=== PATIENT | female | born 1990 | race African-American/Black ===

== ENCOUNTER → 2016-08-05 | Outpatient (CLI) | payer BC ==
[2016-08-05 16:57] LABS: HCG SCREEN POSITIVE
== END | disposition home or self-care (01) ==
LOC: LAB 15:03
PROVIDERS: ATTEND Internal Medicine Geriatric Medicine
DX: N91.2 Amenorrhea, unspecified (principal); Z32.01 Encounter for pregnancy test, result positive
CPT/HCPCS: 84703

== ENCOUNTER → 2017-11-13 | Outpatient (CLI) | payer BC ==
[~2017-11-13] MED LIST: ALBUTEROL (0.083%) 2.5MG/3ML NEB ONE
[2017-11-13 11:52] LABS: CLARITY URINE CLOUDY (CLEAR); COLOR URINE YELLOW (YELLOW); KETONES URINE NEGATIVE (NEGATIVE); LEUKOCYTE ESTERASE URINE NEGATIVE (NEGATIVE); NITRITE URINE NEGATIVE (NEGATIVE); OCCULT BLOOD URINE NEGATIVE (NEGATIVE); PROTEIN URINE NEGATIVE (NEGATIVE); SPECIFIC GRAVITY URINE 1.024 (1.005-1.030); UROBILINOGEN URINE 0.2 E.U./dL (0.2-1.0)
[2017-11-13 12:12] LABS: EOSINOPHILS % 2.1 % (0.0-5.0); HEMATOCRIT. 40.5 % (36.0-48.0); LYMPHOCYTES % 45.6 % (20.0-50.0); MEAN CORPUSCULAR HEMOGLOBIN 32.6 pg (28.0-32.0); MEAN CORPUSCULAR VOLUME 94.1 fL (81.0-99.0); MEAN PLATELET VOLUME 7.6 fl (7.4-10.4); MONOCYTES % 7.1 % (2.0-8.0); NEUTROPHILS % 44.2 % (40.0-76.0); PLATELET 305 x1000/uL (130-400); RED BLOOD CELL COUNT 4.31 mill/uL (4.2-5.4)
[2017-11-13 12:39] LABS: CHLORIDE 102 mEq/L (98-107)
[2017-11-13 12:46] LABS: LDL CHOLESTEROL 82 mg/dL (5-100); TOTAL IRON BINDING CAPACITY 344 ug/dL (250-450)
[2017-11-13 12:47] LABS: HDL CHOLESTEROL 74 mg/dL (40-59)
[2017-11-13 13:10] LABS: VITAMIN B12 SERUM 600 pg/mL (211-911)
[2017-11-13 13:15] LABS: FERRITIN 46 ng/mL (10-291)
== END | disposition home or self-care (01) ==
LOC: LAB 11:33
PROVIDERS: ATTEND Internal Medicine Geriatric Medicine
DX: Z00.01 Encounter for general adult medical examination with abnormal findings (principal); N39.0 Urinary tract infection, site not specified; J45.998 Other asthma; R73.09 Other abnormal glucose
CPT/HCPCS: 36415; 80053; 80061; 81003; 82306; 82607; 82728; 83036; 83540; 83550; 84443; 85025; 86592; 94060; 94727; 94729; J7611

== ENCOUNTER → 2017-12-11 | Outpatient (CLI) | payer BC | END | disposition home or self-care (01) | LOC: MRI 11:02 | PROVIDERS: ATTEND Internal Medicine Geriatric Medicine | DX: S86.011A Strain of right Achilles tendon, initial encounter (principal); X58.XXXA Exposure to other specified factors, initial encounter; Y93.89 Activity, other specified; Y92.89 Other specified places as the place of occurrence of the external cause; Y99.8 Other external cause status | CPT/HCPCS: 73721 ==

== ENCOUNTER → 2017-12-31 | Outpatient (CLI) | payer BC ==
[~2017-12-31] MED LIST changes: -ALBUTEROL (0.083%) 2.5MG/3ML NEB ONE; +GADOBENATE DIMEGLUMINE 529 MG/ML 10ML IV ONE
== END | disposition home or self-care (01) ==
LOC: MRI 13:35
PROVIDERS: ATTEND Internal Medicine Geriatric Medicine
DX: M70.871 Other soft tissue disorders related to use, overuse and pressure, right ankle and foot (principal)
CPT/HCPCS: 73722; A9577

== ENCOUNTER → 2018-02-04 | Outpatient (CLI) | payer BC | END | disposition home or self-care (01) | LOC: RAD 10:10 | PROVIDERS: ATTEND Internal Medicine Geriatric Medicine | DX: M25.571 Pain in right ankle and joints of right foot (principal) | CPT/HCPCS: 73610 ==

== ENCOUNTER → 2018-09-10 | Outpatient (CLI) | payer BC ==
[2018-09-10 11:44] LABS: BASOPHILS % 0.8 % (0.0-2.0); EOSINOPHILS % 1.7 % (0.0-5.0); HEMATOCRIT. 40.8 % (36.0-48.0); LYMPHOCYTES % 36.2 % (20.0-50.0); MEAN CORPUSCULAR HEMOGLOBIN 32.3 pg (28.0-32.0); MEAN CORPUSCULAR VOLUME 94.4 fL (81.0-99.0); MONOCYTES % 6.8 % (2.0-8.0); NEUTROPHILS % 54.5 % (40.0-76.0); PLATELET 298 x1000/uL (130-400); RED BLOOD CELL COUNT 4.33 mill/uL (4.2-5.4); RED CELL DISTRIBUTION WIDTH 13.7 % (11.6-14.6)
[2018-09-10 11:48] LABS: CLARITY URINE CLEAR (CLEAR); COLOR URINE YELLOW (YELLOW); KETONES URINE NEGATIVE (NEGATIVE); LEUKOCYTE ESTERASE URINE NEGATIVE (NEGATIVE); NITRITE URINE NEGATIVE (NEGATIVE); OCCULT BLOOD URINE NEGATIVE (NEGATIVE); PROTEIN URINE NEGATIVE (NEGATIVE); SPECIFIC GRAVITY URINE 1.021 (1.005-1.030)
[2018-09-10 11:51] LABS: PROTHROMBIN TIME 10.6 sec (9.6-11.0)
[2018-09-10 11:53] LABS: CHLORIDE 105 mEq/L (98-107)
[2018-09-10 12:08] LABS: HCG SCREEN NEGATIVE
[2018-09-11 04:11] LABS: HIV SCREEN 4G Non Reactive (Non Reactive)
== END | disposition home or self-care (01) ==
LOC: LAB 11:01
PROVIDERS: ATTEND Internal Medicine Geriatric Medicine
DX: Z01.812 Encounter for preprocedural laboratory examination (principal); R06.02 Shortness of breath; Z87.891 Personal history of nicotine dependence
CPT/HCPCS: 36415; 71046; 84703; 87389

== ENCOUNTER → 2019-04-08 | Outpatient (CLI) | payer BC ==
[2019-04-08 16:29] LABS: BASOPHILS % 1.2 % (0.0-2.0); EOSINOPHILS % 1.5 % (0.0-5.0); HEMOGLOBIN. 13.1 g/dL (12.0-16.0); LYMPHOCYTES % 40.8 % (20.0-50.0); MEAN CORPUSCULAR HEMOGLOBIN 32.2 pg (28.0-32.0); MEAN CORPUSCULAR VOLUME 93.6 fL (81.0-99.0); MEAN PLATELET VOLUME 7.2 fl (7.4-10.4); NEUTROPHILS % 50.5 % (40.0-76.0); PLATELET 308 x1000/uL (130-400); RED BLOOD CELL COUNT 4.06 mill/uL (4.2-5.4); RED CELL DISTRIBUTION WIDTH 13.3 % (11.6-14.6)
[2019-04-08 16:44] LABS: CHLORIDE 106 mEq/L (98-107)
[2019-04-08 17:58] LABS: HEPATITIS B SURFACE AB 41.9 mIU/mL
[2019-04-08 18:39] LABS: HEPATITIS A AB IGM NEGATIVE (NEGATIVE)
[2019-04-10 07:11] LABS: MUMPS IGG ANTIBODY 52.7 AU/mL (Immune >10.9)
== END | disposition home or self-care (01) ==
LOC: LAB 11:56
PROVIDERS: ATTEND Internal Medicine Geriatric Medicine
DX: Z11.59 Encounter for screening for other viral diseases (principal); Z11.0 Encounter for screening for intestinal infectious diseases
CPT/HCPCS: 36415; 86705; 86706; 86709; 86735; 86762; 86765; 86803; 87340

== ENCOUNTER → 2019-05-17 | Outpatient (CLI) | payer BC | END | disposition home or self-care (01) | LOC: LAB 11:49 | PROVIDERS: ATTEND Internal Medicine Geriatric Medicine | DX: Z11.59 Encounter for screening for other viral diseases (principal) | CPT/HCPCS: 86787 ==

== ENCOUNTER → 2019-06-08 | Outpatient (CLI) | payer BC ==
[2019-06-08 12:44] LABS: CLARITY URINE CLEAR (CLEAR); COLOR URINE YELLOW (YELLOW); KETONES URINE NEGATIVE (NEGATIVE); LEUKOCYTE ESTERASE URINE NEGATIVE (NEGATIVE); NITRITE URINE NEGATIVE (NEGATIVE); OCCULT BLOOD URINE NEGATIVE (NEGATIVE); PROTEIN URINE NEGATIVE (NEGATIVE); SPECIFIC GRAVITY URINE 1.024 (1.005-1.030); UROBILINOGEN URINE 0.2 E.U./dL (0.2-1.0)
[2019-06-08 14:32] LABS: CHLORIDE 107 mEq/L (98-107)
[2019-06-08 14:41] LABS: HDL CHOLESTEROL 78 mg/dL (40-59); LDL CHOLESTEROL 54 mg/dL (5-100)
[2019-06-08 15:03] LABS: VITAMIN B12 SERUM 582 pg/mL (211-911)
[2019-06-10 04:11] LABS: CHLAMYDIA TRACHOMATIS NAA Negative (Negative); NEISSERIA GONORRHOEAE NAA Negative (Negative)
== END | disposition home or self-care (01) ==
LOC: LAB 11:29
PROVIDERS: ATTEND Internal Medicine Geriatric Medicine
DX: Z11.3 Encounter for screening for infections with a predominantly sexual mode of transmission (principal); R73.09 Other abnormal glucose; N39.0 Urinary tract infection, site not specified
CPT/HCPCS: 36415; 80053; 80061; 81003; 82306; 82607; 87491; 87591

== ENCOUNTER 2019-10-06 13:49 | Emergency (ER) | payer BC ==
[~2019-10-06] VITALS: Ht 165.1 cm; Wt 60.0 kg
[2019-10-06] MEDS ORDERED: ACETAMINOPHEN 325MG TABLET PO STA (15:38)
[2019-10-06] MEDS ORDERED: SODIUM CHLORIDE 0.9% 1,000 ML IV ONE (15:38)
[2019-10-06] MEDS ORDERED: ONDANSETRON HCL 4MG/2ML INJ IV STA (15:38)
[2019-10-06 16:09] LABS: BASOPHILS % 0.4 % (0.0-2.0); EOSINOPHILS % 1.6 % (0.0-5.0); HEMATOCRIT. 35.6 % (36.0-48.0); HEMOGLOBIN. 12.6 g/dL (12.0-16.0); LYMPHOCYTES % 23.4 % (20.0-50.0); MEAN CORPUSCULAR HEMOGLOBIN 32.8 pg (28.0-32.0); MEAN CORPUSCULAR VOLUME 92.9 fL (81.0-99.0); MEAN PLATELET VOLUME 7.2 fl (7.4-10.4); MONOCYTES % 7.5 % (2.0-8.0); NEUTROPHILS % 67.1 % (40.0-76.0); PLATELET 282 x1000/uL (130-400); RED BLOOD CELL COUNT 3.83 mill/uL (4.2-5.4); RED CELL DISTRIBUTION WIDTH 13.4 % (11.6-14.6)
[2019-10-06 16:20] LABS: CHLORIDE 105 mEq/L (98-107)
[2019-10-06 16:31] LABS: CLARITY URINE CLOUDY (CLEAR); COLOR URINE YELLOW (YELLOW); KETONES URINE 4+ (NEGATIVE); LEUKOCYTE ESTERASE URINE TRACE (NEGATIVE); NITRITE URINE NEGATIVE (NEGATIVE); OCCULT BLOOD URINE NEGATIVE (NEGATIVE); PH URINE 5.5 (4.5-8.0); PROTEIN URINE 1+ (NEGATIVE); SPECIFIC GRAVITY URINE 1.036 (1.005-1.030)
[2019-10-06 16:44] LABS: B-HCG QUANTITATIVE 150072 mIU/mL (<3)
[2019-10-06] MEDS ORDERED: ONDANSETRON HCL 4MG/2ML INJ IV ONE (18:30)
[2019-10-06 18:55] VITALS: BP 110/59
== END 2019-10-06 18:57 | disposition home or self-care (01) ==
LOC: ER 14:00
DX: O21.0 Mild hyperemesis gravidarum (principal); O23.41 Unspecified infection of urinary tract in pregnancy, first trimester; O99.321 Drug use complicating pregnancy, first trimester; F12.90 Cannabis use, unspecified, uncomplicated; O26.891 Other specified pregnancy related conditions, first trimester; J45.909 Unspecified asthma, uncomplicated; Z3A.12 12 weeks gestation of pregnancy
CPT/HCPCS: 36415; 70551; 76801; 76817; 80053; 81003; 83690; 84702; 85025; 86850; 86900; 86901; 96361; 96374; 96376; 99285; J2405; J7030

== ENCOUNTER 2019-10-22 17:42 | Inpatient (IN) | payer BC ==
[~2019-10-22] VITALS: Ht 157.5 cm; Wt 53.5 kg
[2019-10-22] MEDS ORDERED: DEXT 5%/LACTATED RINGERS 1,000 ML IV ONE (18:00)
[2019-10-22] MEDS ORDERED: ONDANSETRON HCL 4MG/2ML INJ IV ONE (18:00)
[2019-10-22] MEDS ORDERED: SODIUM CHLORIDE 0.9% 1,000 ML IV ONE (18:30)
[2019-10-22 18:32] LABS: CHLORIDE 91 mEq/L (98-107)
[2019-10-22 18:35] LABS: BASOPHILS % 0.3 % (0.0-2.0); EOSINOPHILS % 0.3 % (0.0-5.0); HEMATOCRIT. 37.7 % (36.0-48.0); HEMOGLOBIN. 13.6 g/dL (12.0-16.0); LYMPHOCYTES % 11.9 % (20.0-50.0); MEAN CORPUSCULAR HEMOGLOBIN 32.1 pg (28.0-32.0); MEAN CORPUSCULAR VOLUME 89.2 fL (81.0-99.0); MEAN PLATELET VOLUME 7.8 fl (7.4-10.4); MONOCYTES % 9.2 % (2.0-8.0); NEUTROPHILS % 78.3 % (40.0-76.0); PLATELET 266 x1000/uL (130-400); RED BLOOD CELL COUNT 4.22 mill/uL (4.2-5.4); RED CELL DISTRIBUTION WIDTH 12.9 % (11.6-14.6)
[2019-10-22 18:41] LABS: T4 FREE 3.03 ng/dL (0.76-1.46)
[2019-10-22] MEDS ORDERED: POTASSIUM CHLORIDE INJ 40 MEQ in DEXT 5% WATER 250 ML IV ONE (19:15)
[2019-10-22 20:55] VITALS: BP 134/86
[2019-10-22] MEDS ORDERED: MONT4TAB9 MT (23:33)
[2019-10-23] MEDS ORDERED: METOPROLOL TARTRATE 5MG/5ML VIAL IV ONE (02:00)
[2019-10-23] MEDS ORDERED: METOPROLOL TARTRATE 5MG/5ML VIAL IV PRN (02:15)
[2019-10-23] MEDS: ONDANSETRON HCL 4MG/2ML INJ IV PRN ×3 (03:34→13:39)
[2019-10-23 05:54] LABS: CHLORIDE 94 mEq/L (98-107)
[2019-10-23 08:14] VITALS: BP 132/83
[2019-10-23] MEDS ORDERED: LABETALOL 5MG/ML SYR 20 MG/4 ML SYRINGE IV PRN (09:00)
[2019-10-23] MEDS: DEXT 5%/0.45% NACL KCL 40MEQ/L 1,000 ML IV SCH ×2 (09:17→21:54)
[2019-10-23] MEDS: PRENATAL VIT/FE FUMARATE/FA TABLET PO SCH (09:17)
[2019-10-23] MEDS: PYRIDOXINE HCL 50MG TABLET PO SCH ×3 (09:17→21:55)
[2019-10-23] MEDS: DOCUSATE SODIUM 250MG CAPSULE PO SCH (09:17)
[2019-10-23] MEDS: METOPROLOL TARTRATE 5MG/5ML VIAL IV SCH ×3 (09:18→17:21)
[2019-10-23] MEDS ORDERED: MAGNESIUM 2 G PREMIX 50 ML IV SCH (10:00)
[2019-10-23 11:34] LABS: HEMATOCRIT 34.2 % (36.0-48.0); HEMOGLOBIN 12.4 g/dL (12.0-16.0); MEAN CORPUSCULAR HEMOGLOBIN 32.3 pg (28.0-32.0); PLATELET 233 x1000/uL (130-400); RED BLOOD CELL COUNT 3.84 mill/uL (4.2-5.4); RED CELL DISTRIBUTION WIDTH 12.9 % (11.6-14.6)
[2019-10-23 12:11] VITALS: BP 143/99
[2019-10-23 12:22] LABS: CHLORIDE 93 mEq/L (98-107)
[2019-10-23 16:00] VITALS: BP 150/98
[2019-10-23] MEDS ORDERED: ACETAMINOPHEN 325MG TABLET PO PRN (16:30)
[2019-10-23 16:41] VITALS: BP 150/98
[2019-10-23 20:00] VITALS: BP 136/91
[2019-10-24] VITALS (8 sets, daily range): BP systolic 120–139; BP diastolic 72–95
[2019-10-24] MEDS: METOPROLOL TARTRATE 5MG/5ML VIAL IV SCH ×2 (00:14→06:03)
[2019-10-24] MEDS: ONDANSETRON HCL 4MG/2ML INJ IV PRN ×2 (03:53→21:49)
[2019-10-24] MEDS: PYRIDOXINE HCL 50MG TABLET PO SCH ×3 (06:02→23:23)
[2019-10-24 06:24] LABS: CHLORIDE 97 mEq/L (98-107)
[2019-10-24 07:59] LABS: HEMATOCRIT. 32.3 % (36.0-48.0); HEMOGLOBIN. 11.7 g/dL (12.0-16.0); LYMPHOCYTES % 13.8 % (20.0-50.0); MEAN CORPUSCULAR HEMOGLOBIN 32.5 pg (28.0-32.0); MEAN CORPUSCULAR VOLUME 89.6 fL (81.0-99.0); MEAN PLATELET VOLUME 7.9 fl (7.4-10.4); MONOCYTES % 10.1 % (2.0-8.0); NEUTROPHILS % 74.1 % (40.0-76.0); PLATELET 215 x1000/uL (130-400); RED BLOOD CELL COUNT 3.61 mill/uL (4.2-5.4); RED CELL DISTRIBUTION WIDTH 12.8 % (11.6-14.6)
[2019-10-24] MEDS ORDERED: POTASSIUM CHLORIDE INJ 40 MEQ in DEXT 5% WATER 250 ML IV NR (08:00)
[2019-10-24] MEDS: DOCUSATE SODIUM 250MG CAPSULE PO SCH (09:23)
[2019-10-24] MEDS: PRENATAL VIT/FE FUMARATE/FA TABLET PO SCH (09:23)
[2019-10-24] MEDS: DEXT 5%/0.45% NACL KCL 40MEQ/L 1,000 ML IV SCH ×2 (11:36→18:19)
[2019-10-24 12:34] LABS: PHOSPHORUS 2.6 mg/dL (2.5-4.9)
[2019-10-24] MEDS: PROPYLTHIOURACIL 50MG TABLET PO SCH ×3 (13:49→23:23)
[2019-10-24 17:10] LABS: CORTISOL 14.6 ucg/dL; TRIOIODOTHYRONINE TOTAL 2.62 ng/ml (0.60-1.81)
[2019-10-25 02:44] VITALS: BP 124/72
[2019-10-25 04:45] LABS: BASOPHILS % 0.6 % (0.0-2.0); EOSINOPHILS % 1.4 % (0.0-5.0); HEMATOCRIT. 30.2 % (36.0-48.0); LYMPHOCYTES % 26.1 % (20.0-50.0); MEAN CORPUSCULAR HEMOGLOBIN 32.8 pg (28.0-32.0); MEAN CORPUSCULAR VOLUME 90.1 fL (81.0-99.0); MEAN PLATELET VOLUME 7.5 fl (7.4-10.4); MONOCYTES % 10.2 % (2.0-8.0); NEUTROPHILS % 61.7 % (40.0-76.0); PLATELET 193 x1000/uL (130-400); RED BLOOD CELL COUNT 3.35 mill/uL (4.2-5.4); RED CELL DISTRIBUTION WIDTH 12.9 % (11.6-14.6)
[2019-10-25 04:50] LABS: CHLORIDE 100 mEq/L (98-107)
[2019-10-25 04:56] LABS: PHOSPHORUS 1.9 mg/dL (2.5-4.9)
[2019-10-25] MEDS: PROPYLTHIOURACIL 50MG TABLET PO SCH ×3 (05:26→18:23)
[2019-10-25] MEDS: PYRIDOXINE HCL 50MG TABLET PO SCH ×3 (05:26→22:11)
[2019-10-25 05:32] VITALS: BP 128/75
[2019-10-25] MEDS ORDERED: SODIUM PHOS,M-BASIC-D-BASIC 20 MM in DEXT 5% WATER 243.3333 ML IV NR (08:00)
[2019-10-25 08:10] VITALS: BP 115/75
[2019-10-25] MEDS ORDERED: SODIUM PHOS,M-BASIC-D-BASIC 15 MM in DEXT 5% WATER 245 ML IV ONE (08:30)
[2019-10-25] MEDS: DOCUSATE SODIUM 250MG CAPSULE PO SCH (09:20)
[2019-10-25] MEDS: PRENATAL VIT/FE FUMARATE/FA TABLET PO SCH (09:21)
[2019-10-25] MEDS: ONDANSETRON HCL 4MG/2ML INJ IV PRN (10:30)
[2019-10-25 12:00] VITALS: BP 113/68
[2019-10-25] MEDS: PROMETHAZINE HCL 25MG TABLET PO SCH ×2 (15:25→18:23)
[2019-10-25 16:00] VITALS: BP 106/63
[2019-10-25 20:00] VITALS: BP 108/63
[2019-10-26] VITALS: BP 97/54
[2019-10-26] MEDS: PROMETHAZINE HCL 25MG TABLET PO SCH ×3 (00:23→13:18)
[2019-10-26] MEDS: PROPYLTHIOURACIL 50MG TABLET PO SCH ×3 (00:23→13:18)
[2019-10-26 04:00] VITALS: BP 119/65
[2019-10-26] MEDS: PYRIDOXINE HCL 50MG TABLET PO SCH ×2 (06:22→13:18)
[2019-10-26 06:31] LABS: CHLORIDE 103 mEq/L (98-107)
[2019-10-26 08:00] VITALS: BP 125/82
[2019-10-26] MEDS ORDERED: PY50 PO (08:02)
[2019-10-26] MEDS ORDERED: PROP50TA3 PO (08:02)
[2019-10-26] MEDS ORDERED: DOCU250C14 PO (08:02)
[2019-10-26] MEDS: ONDANSETRON HCL 4MG/2ML INJ IV PRN (08:22)
[2019-10-26 08:33] LABS: HEMATOCRIT. 28.5 % (36.0-48.0); HEMOGLOBIN. 10.1 g/dL (12.0-16.0); MEAN CORPUSCULAR HEMOGLOBIN 32.5 pg (28.0-32.0); MEAN PLATELET VOLUME 7.9 fl (7.4-10.4); PLATELET 165 x1000/uL (130-400); RED CELL DISTRIBUTION WIDTH 13.2 % (11.6-14.6)
[2019-10-26 09:06] LABS: VITAMIN D 25-OH 11.1 ng/mL (30.0-100.0)
[2019-10-26] MEDS: DOCUSATE SODIUM 250MG CAPSULE PO SCH (10:49)
[2019-10-26] MEDS: PRENATAL VIT/FE FUMARATE/FA TABLET PO SCH (10:49)
[2019-10-26 12:00] VITALS: BP 126/75
[2019-10-26 13:06] LABS: ALBUMIN 3.1 g/dL (2.9-4.4); ALPHA-1-GLOBULIN 0.4 g/dL (0.0-0.4); ALPHA-2-GLOBULIN 0.8 g/dL (0.4-1.0); BETA GLOBULIN 0.9 g/dL (0.7-1.3); GAMMA GLOBULINS 0.9 g/dL (0.4-1.8); M-SPIKE Not Observed g/dL (Not Observed); TOTAL PROTEIN SERUM 6.1 g/dL (6.0-8.5)
[2019-10-26 13:24] VITALS: BP 126/75
[2019-10-26 13:47] LABS: PLATELET ESTIMATE NORMAL
== END 2019-10-26 13:58 | disposition home or self-care (01) | DRG 832 ==
LOC: ER 17:42 → EDBEDREQ 18:01 → 6WST 19:05 → EDBEDREQSVC 19:09 → EDBEDREQ 19:09 → EDBEDREQTM 19:09 → ENRESERV 20:03 → 6WST 21:45
PROVIDERS: ADMIT Obstetrics & Gynecology Obstetrics; ATTEND Obstetrics & Gynecology Obstetrics
DX: O21.1 Hyperemesis gravidarum with metabolic disturbance (principal); I47.1 Supraventricular tachycardia; O99.412 Diseases of the circulatory system complicating pregnancy, second trimester; I48.92 Unspecified atrial flutter; O99.012 Anemia complicating pregnancy, second trimester; E05.90 Thyrotoxicosis, unspecified without thyrotoxic crisis or storm; E83.39 Other disorders of phosphorus metabolism; F43.20 Adjustment disorder, unspecified; J45.909 Unspecified asthma, uncomplicated; R63.4 Abnormal weight loss; R06.82 Tachypnea, not elsewhere classified; R73.9 Hyperglycemia, unspecified; O99.282 Endocrine, nutritional and metabolic diseases complicating pregnancy, second trimester; O99.342 Other mental disorders complicating pregnancy, second trimester; O99.512 Diseases of the respiratory system complicating pregnancy, second trimester; Z82.3 Family history of stroke; Z82.49 Family history of ischemic heart disease and other diseases of the circulatory system; Z83.3 Family history of diabetes mellitus; Z3A.14 14 weeks gestation of pregnancy
CPT/HCPCS: 36415; 80048; 80053; 80061; 82306; 82533; 83036; 83520; 83735; 83970; 84100; 84155; 84165; 84439; 84443; 84480; 84481; 85025; 85027; 86376; 93005; 93306; 96365; 99285; J2405; J3480; J3490; J7030; J7060; J7121; Q0169

== ENCOUNTER → 2019-11-03 | Outpatient (CLI) | payer BC ==
[~2019-11-03] MED LIST changes: +DOCU250C14 PO; -GADOBENATE DIMEGLUMINE 529 MG/ML 10ML IV ONE; +PROP50TA3 PO; +PY50 PO
[2019-11-03 12:58] LABS: CHLORIDE 107 mEq/L (98-107)
[2019-11-03 13:08] LABS: T4 FREE 0.84 ng/dL (0.76-1.46)
[2019-11-03 13:27] LABS: BASOPHILS % 0.3 % (0.0-2.0); EOSINOPHILS % 1.5 % (0.0-5.0); HEMATOCRIT. 28.9 % (36.0-48.0); HEMOGLOBIN. 10.2 g/dL (12.0-16.0); MEAN CORPUSCULAR HEMOGLOBIN 32.6 pg (28.0-32.0); MEAN CORPUSCULAR VOLUME 92.6 fL (81.0-99.0); MEAN PLATELET VOLUME 7.2 fl (7.4-10.4); MONOCYTES % 6.3 % (2.0-8.0); NEUTROPHILS % 74.9 % (40.0-76.0); PLATELET 254 x1000/uL (130-400); RED BLOOD CELL COUNT 3.12 mill/uL (4.2-5.4)
[2019-11-03 13:28] LABS: HEPATITIS B SURFACE AB 30.7 mIU/mL
[2019-11-04 09:10] LABS: HIV SCREEN 4G Non Reactive (Non Reactive)
[2019-11-05 13:06] LABS: HGB A 97.1 % (96.4-98.8); HGB A2 2.9 % (1.8-3.2)
[2019-11-07 04:06] LABS: 25-HYDROXY VITAMIN D3 12 ng/mL (.)
== END | disposition home or self-care (01) ==
LOC: LAB 11:53
PROVIDERS: ATTEND Obstetrics & Gynecology Obstetrics
DX: O24.312 Unspecified pre-existing diabetes mellitus in pregnancy, second trimester (principal); Z3A.16 16 weeks gestation of pregnancy; A51.0 Primary genital syphilis; E55.9 Vitamin D deficiency, unspecified; B97.35 Human immunodeficiency virus, type 2 [HIV 2] as the cause of diseases classified elsewhere; K71.0 Toxic liver disease with cholestasis; N39.0 Urinary tract infection, site not specified; Z01.83 Encounter for blood typing; Z13.29 Encounter for screening for other suspected endocrine disorder
CPT/HCPCS: 36415; 80053; 82306; 83021; 83036; 84436; 84439; 84443; 84479; 85025; 85660; 86592; 86706; 86762; 86803; 86850; 86900; 87389

== ENCOUNTER → 2020-01-14 | Outpatient (CLI) | payer BC | END | disposition home or self-care (01) | LOC: LAB 10:18 | PROVIDERS: ATTEND Obstetrics & Gynecology Obstetrics | DX: O24.312 Unspecified pre-existing diabetes mellitus in pregnancy, second trimester (principal); Z3A.26 26 weeks gestation of pregnancy | CPT/HCPCS: 36415; 82947; 82950 ==

== ENCOUNTER 2020-03-24 14:10 | Observation (INO) | payer BC ==
[2020-03-24 15:24] LABS: CLARITY URINE CLOUDY (CLEAR); COLOR URINE YELLOW (YELLOW); KETONES URINE NEGATIVE (NEGATIVE); LEUKOCYTE ESTERASE URINE NEGATIVE (NEGATIVE); NITRITE URINE NEGATIVE (NEGATIVE); OCCULT BLOOD URINE NEGATIVE (NEGATIVE); PH URINE 6.5 (4.5-8.0); PROTEIN URINE TRACE (NEGATIVE); SPECIFIC GRAVITY URINE 1.024 (1.005-1.030)
[2020-03-24] MEDS ORDERED: NITROFURANTOIN 100MG M/M CAPSULE PO NR (16:15)
== END 2020-03-24 18:30 | disposition home or self-care (01) ==
LOC: 8 EST LDRP 14:10
PROVIDERS: ADMIT Obstetrics & Gynecology Obstetrics; ATTEND Obstetrics & Gynecology Obstetrics
DX: O26.893 Other specified pregnancy related conditions, third trimester (principal); R10.2 Pelvic and perineal pain; Z3A.36 36 weeks gestation of pregnancy
CPT/HCPCS: 59025; 81003; G0378; 99281

== ENCOUNTER 2020-04-19 21:50 | Observation (INO) | payer BC ==
[~2020-04-19] VITALS: Ht 162.6 cm; Wt 75.3 kg
[2020-04-19] MEDS ORDERED: DOCO200C5 MT (22:43)
== END 2020-04-19 23:09 | disposition home or self-care (01) ==
LOC: 8 EST LDRP 21:50
PROVIDERS: ADMIT Obstetrics & Gynecology Obstetrics; ATTEND Obstetrics & Gynecology Obstetrics
DX: O62.9 Abnormality of forces of labor, unspecified (principal); Z3A.38 38 weeks gestation of pregnancy
CPT/HCPCS: 59025; G0378; 99281

== ENCOUNTER 2020-04-20 12:25 | Inpatient (IN) | payer BC ==
[~2020-04-20] VITALS: Ht 162.6 cm; Wt 75.3 kg
[~2020-04-20 12:25] MED LIST changes: +DOCO200C5 MT; -DOCU250C14 PO; -PROP50TA3 PO; -PY50 PO
[2020-04-20] MEDS ORDERED: DEXT 5%/LR + PITOCIN 20UNITS/L 1,000 ML IV SCH (13:15)
[2020-04-20] MEDS ORDERED: MISOPROSTOL 100MCG TABLET VG SCH (13:15)
[2020-04-20] MEDS ORDERED: MINERAL OIL 30ML BOTTLE PO ONE (13:15)
[2020-04-20] MEDS ORDERED: LACTATED RINGERS 1,000 ML IV SCH (13:15)
[2020-04-20] MEDS ORDERED: LIDOCAINE HCL 1% 20ML VIAL (Pyxis) INJ INFIL SCH (13:15)
[2020-04-20] MEDS ORDERED: NALOXONE HCL 0.4 MG/ML 1ML VIAL IM PRN (13:15)
[2020-04-20] MEDS ORDERED: BUTORPHANOL TARTRATE 2 MG/ML VIAL IV PRN (13:15)
[2020-04-20] MEDS ORDERED: BENZOCAINE/LANOLIN/ALOE VERA SPRAY TOP PRN (13:45)
[2020-04-20] MEDS ORDERED: LANOLIN OINT 7GM TUBE TOP PRN (13:45)
[2020-04-20] MEDS ORDERED: GLYCERIN/WITCH HAZEL LEAF MEDICATED PAD TOP PRN (13:45)
[2020-04-20] MEDS ORDERED: ACETAMINOPHEN WITH CODEINE 300/30MG TABLET PO PRN (13:45)
[2020-04-20] MEDS ORDERED: METHYLERGONOVINE MALEATE 0.2 MG/ML IM PRN (14:00)
[2020-04-20 14:29] LABS: HEMATOCRIT. 35.5 % (36.0-48.0); MEAN CORPUSCULAR HEMOGLOBIN 30.3 pg (28.0-32.0); MEAN CORPUSCULAR VOLUME 89.5 fL (81.0-99.0); MEAN PLATELET VOLUME 8.2 fl (7.4-10.4); PLATELET 234 x1000/uL (130-400); RED BLOOD CELL COUNT 3.97 mill/uL (4.2-5.4); RED CELL DISTRIBUTION WIDTH 14.2 % (11.6-14.6)
[2020-04-20 14:39] LABS: INR 0.9; PARTIAL THROMBOPLASTIN TIME 27.1 sec (23.4-31.0)
[2020-04-20 14:53] LABS: PLATELET ESTIMATE NORMAL
[2020-04-20 15:08] LABS: HEPATITIS B SURFACE ANTIGEN NEGATIVE
[2020-04-20 17:05] VITALS: BP 116/73
[2020-04-20 20:00] VITALS: BP 100/58
[2020-04-20] MEDS ORDERED: ONDANSETRON HCL 4MG/2ML INJ IV NR (20:15)
[2020-04-20] MEDS: IBUPROFEN 800MG TABLET PO PRN (20:23)
[2020-04-20] MEDS ORDERED: DOCUSATE SODIUM 100MG CAPSULE PO SCH (21:00)
[2020-04-20] MEDS ORDERED: TETANUS, DIPHTHERIA, PERTUSSIS VAC/PF 0.5ML (>7YR OLD) IM ONE (21:30)
[2020-04-21] VITALS: BP 110/75
[2020-04-21 04:00] VITALS: BP_SYST 112; BP_SYST 91; BP_DIAS 48; BP_DIAS 61
[2020-04-21 06:33] LABS: *BARBITURATES SCREEN URINE NEGATIVE (NEGATIVE); *BENZODIAZEPINES SCREEN URINE NEGATIVE (NEGATIVE); *COCAINE SCREEN URINE NEGATIVE (NEGATIVE); METHADONE URINE SCREEN NEGATIVE (NEGATIVE)
[2020-04-21 06:34] LABS: OPIATES URINE SCREEN NEGATIVE (NEGATIVE); PHENCYCLIDINE URINE SCREEN NEGATIVE (NEGATIVE)
[2020-04-21 06:37] LABS: *AMPHETAMINES SCREEN URINE NEGATIVE (NEGATIVE)
[2020-04-21 06:42] LABS: CANNABINOID URINE SCREEN PRESUMTIVE POSITIVE (NEGATIVE)
[2020-04-21 07:40] LABS: BASOPHILS % 0.4 % (0.0-2.0); EOSINOPHILS % 0.3 % (0.0-5.0); HEMATOCRIT. 31.1 % (36.0-48.0); HEMOGLOBIN. 10.5 g/dL (12.0-16.0); MEAN CORPUSCULAR HEMOGLOBIN 30.7 pg (28.0-32.0); MEAN CORPUSCULAR VOLUME 90.6 fL (81.0-99.0); MEAN PLATELET VOLUME 8.5 fl (7.4-10.4); MONOCYTES % 8.5 % (2.0-8.0); NEUTROPHILS % 78.8 % (40.0-76.0); PLATELET 226 x1000/uL (130-400); RED BLOOD CELL COUNT 3.43 mill/uL (4.2-5.4)
[2020-04-21 08:00] VITALS: BP 94/48
[2020-04-21 08:30] VITALS: BP 112/61
[2020-04-21] MEDS: IBUPROFEN 800MG TABLET PO PRN (08:30)
[2020-04-21 09:10] LABS: CLARITY URINE CLOUDY (CLEAR); COLOR URINE DK YELLOW (YELLOW); KETONES URINE TRACE (NEGATIVE); LEUKOCYTE ESTERASE URINE TRACE (NEGATIVE); NITRITE URINE NEGATIVE (NEGATIVE); OCCULT BLOOD URINE 3+ (NEGATIVE); PROTEIN URINE TRACE (NEGATIVE); SPECIFIC GRAVITY URINE 1.022 (1.005-1.030)
== END 2020-04-21 19:59 | disposition home or self-care (01) | DRG 807 ==
LOC: 8EST NSY 12:25 → OBSVTOIN 12:25 → 8 EST LDRP 12:58 → 8EST 18:12
PROVIDERS: ADMIT Obstetrics & Gynecology Obstetrics; ATTEND Obstetrics & Gynecology Obstetrics
PROC: 10E0XZZ Delivery of Products of Conception, External Approach (ICD-10-PCS; principal; 2020-04-21)
PROC: 0W8NXZZ Division of Female Perineum, External Approach (ICD-10-PCS; 2020-04-21)
DX: O77.0 Labor and delivery complicated by meconium in amniotic fluid (principal); Z37.0 Single live birth; Z3A.39 39 weeks gestation of pregnancy
CPT/HCPCS: 36415; 80305; 80349; 81003; 85025; 86592; 86703; 86762; 86850; 86900; 87340; 90715; 99281; J0595; J2405; J2590; J3490; J7120

== ENCOUNTER → 2020-06-28 | Outpatient (CLI) | payer BC ==
[2020-06-28 15:57] LABS: CHLORIDE 105 mEq/L (98-107)
[2020-06-28 16:04] LABS: LDL CHOLESTEROL 89 mg/dL (5-100)
[2020-06-28 16:05] LABS: HDL CHOLESTEROL 75 mg/dL (40-59); T4 FREE 1.14 ng/dL (0.76-1.46); TOTAL IRON BINDING CAPACITY 333 ug/dL (250-450)
[2020-06-28 16:14] LABS: FERRITIN 23 ng/mL (10-291); HEPATITIS B SURFACE AB 47.7 mIU/mL
[2020-06-28 16:27] LABS: VITAMIN B12 SERUM 692 pg/mL (211-911)
[2020-06-28 16:54] LABS: HEPATITIS A AB IGM NEGATIVE (NEGATIVE)
[2020-06-30 07:08] LABS: HBSAG SCREEN Negative (Negative)
== END | disposition home or self-care (01) ==
LOC: LAB 14:04
PROVIDERS: ATTEND Internal Medicine Geriatric Medicine
DX: Z00.01 Encounter for general adult medical examination with abnormal findings (principal)
CPT/HCPCS: 36415; 80053; 80061; 82306; 82607; 82728; 82746; 83036; 83540; 83550; 84436; 84439; 86592; 86705; 86706; 86709; 86803; 87340

== ENCOUNTER → 2020-07-10 | Outpatient (CLI) | payer BC | END | disposition home or self-care (01) | LOC: RAD 16:15 | PROVIDERS: ATTEND Internal Medicine Geriatric Medicine | DX: M25.532 Pain in left wrist (principal) | CPT/HCPCS: 73110 ==

== ENCOUNTER → 2020-08-15 | Outpatient (CLI) | payer BC | END | disposition home or self-care (01) | LOC: OT 11:06 | PROVIDERS: ATTEND Orthopaedic Surgery Hand Surgery | DX: M65.4 Radial styloid tenosynovitis [de Quervain] (principal) | CPT/HCPCS: 97166 ==

== ENCOUNTER → 2021-08-07 | Outpatient (CLI) | payer BC ==
[2021-08-07 09:59] LABS: BASOPHILS % 0.7 % (0.0-2.0); HEMATOCRIT. 37.4 % (36.0-48.0); LYMPHOCYTES % 30.8 % (20.0-50.0); MEAN CORPUSCULAR HEMOGLOBIN 32.1 pg (28.0-32.0); MEAN CORPUSCULAR VOLUME 92.5 fL (81.0-99.0); MEAN PLATELET VOLUME 7.3 fl (7.4-10.4); MONOCYTES % 7.4 % (2.0-8.0); NEUTROPHILS % 58.1 % (40.0-76.0); PLATELET 313 x1000/uL (130-400); RED BLOOD CELL COUNT 4.05 mill/uL (4.2-5.4); RED CELL DISTRIBUTION WIDTH 13.1 % (11.6-14.6)
[2021-08-07 10:02] LABS: CLARITY URINE CLEAR (CLEAR); COLOR URINE YELLOW (YELLOW); KETONES URINE TRACE (NEGATIVE); LEUKOCYTE ESTERASE URINE TRACE (NEGATIVE); NITRITE URINE NEGATIVE (NEGATIVE); OCCULT BLOOD URINE NEGATIVE (NEGATIVE); PROTEIN URINE NEGATIVE (NEGATIVE)
[2021-08-07 10:09] LABS: CHLORIDE 108 mEq/L (98-107)
[2021-08-07 10:16] LABS: TOTAL IRON BINDING CAPACITY 394 ug/dL (250-450)
[2021-08-07 10:58] LABS: VITAMIN B12 SERUM 412 pg/mL (211-911)
[2021-08-07 12:37] LABS: FERRITIN 47 ng/mL (10-291)
[2021-08-07 12:48] LABS: HEPATITIS B SURFACE ANTIGEN NEGATIVE
[2021-08-08 06:07] LABS: HIV SCREEN 4G Non Reactive (Non Reactive); VITAMIN D 25-OH 8.9 ng/mL (30.0-100.0)
== END | disposition home or self-care (01) ==
LOC: LAB 09:23
PROVIDERS: ATTEND Internal Medicine Geriatric Medicine
DX: Z11.3 Encounter for screening for infections with a predominantly sexual mode of transmission (principal); Z00.01 Encounter for general adult medical examination with abnormal findings; R74.01 Elevation of levels of liver transaminase levels; J45.20 Mild intermittent asthma, uncomplicated; N39.0 Urinary tract infection, site not specified
CPT/HCPCS: 36415; 80053; 81003; 82306; 82607; 82728; 83036; 83540; 83550; 84443; 85025; 86592; 86705; 86709; 86803; 87340; 87389